=== PATIENT | male | born 1980 | race African-American/Black ===

== ENCOUNTER 2016-09-20 18:52 | Emergency (ER) | payer SELFPAY ==
[2016-09-20] MEDS ORDERED: Ketorolac 60 MG/2 ML SDV IM ONE (19:13)
--- NOTE | 2016-09-20 20:26 | EDM.PDOC ---
ED HPI GENERAL MEDICAL PROBLEM - General Chief Complaint: Lower Extremity Injury/Pain Stated Complaint: PT HURT LT ANKLE Time Seen by Provider: 09/20/16 19:10 Source of Information: Reports: Patient History Limitations: Reports: No Limitations - History of Present Illness INITIAL COMMENTS - FREE TEXT/NARRATIVE: History of present illness: [36-year-old male status post acute traumatic blow to external aspect of left ankle. Patient was stabilizing a hose when it would not couple and subsequently was using a hammer to strike the coupling to force the connection when his foot slipped and he subsequently hit his own ankle. Review of systems: As per history of present illness and below otherwise all systems reviewed and negative. Past medical history: As per history of present illness and as reviewed below otherwise noncontributory. Surgical history: As per history of present illness and as reviewed below otherwise noncontributory. Social history: No reported history of drug or alcohol abuse. Family history: As per history of present illness and as reviewed below otherwise noncontributory. Physical exam: HEENT: Atraumatic, normocephalic, pupils reactive, negative for conjunctival pallor or scleral icterus, mucous membranes moist, throat clear, neck supple, nontender, trachea midline. Lungs: Clear to auscultation, breath sounds equal bilaterally, chest nontender. Heart: S1S2, regular, negative for clicks, rubs, or JVD. Abdomen: Soft, nondistended, nontender. Negative for masses or hepatosplenomegaly. Negative for costovertebral tenderness. Pelvis: Stable nontender. Genitourinary: Deferred. Rectal: Deferred. Extremities: Left ankle with 1 posterior left wrist edema without ecchymosis, point tenderness, negative for cords or calf pain. Neurovascular unremarkable. Neuro: Awake, alert, oriented. Cranial nerves II through XII unremarkable. Cerebellum unremarkable. Motor and sensory unremarkable throughout. Exam nonfocal. Global assessment is benign save that as noted Diagnostics: [] Therapeutics: [] Impression: [Ankle pain] Plan: [OTC pain meds, ice, elevate] Definitive disposition and diagnosis as appropriate pending reevaluation and review of above. Left Ankle Pain Score (Numeric/FACES): 4 - Related Data Allergies Allergy/AdvReac Type Severity Reaction Status Date / Time No Known Allergies Allergy Verified 09/20/16 19:10 Home Meds: Home Meds Meloxicam 7.5 mg PO BID #30 tablet 09/20/16 [Rx] Orphenadrine [Norflex] 100 mg PO BID #28 tab.er 09/20/16 [Rx] Past Medical History HEENT History: Reports: None Cardiovascular History: Reports: None Respiratory History: Reports: None Gastrointestinal History: Reports: None Genitourinary History: Reports: None Musculoskeletal History: Reports: None Neurological History: Reports: None Psychiatric History: Reports: None Endocrine/Metabolic History: Reports: None Hematologic History: Reports: None Immunologic History: Reports: None Oncologic (Cancer) History: Reports: None Dermatologic History: Reports: None - Infectious Disease History Infectious Disease History: Reports: None Social & Family History - Family History Family Medical History: Noncontributory - Tobacco Use Smoking Status *Q: Current Every Day Smoker Years of Tobacco use: 12 Packs/Tins Daily: 0.5 - Caffeine Use Caffeine Use: Reports: Soda - Recreational Drug Use Recreational Drug Use: No Review of Systems - Review of Systems Review Of Systems: See Below (History of present illness) ED EXAM, GENERAL - Physical Exam Exam: See Below (See history of present illness) Course - Vital Signs Last Recorded V/S: Last Vital Signs Temp 36.8 C 09/20/16 19:07 Pulse 82 09/20/16 19:07 Resp 20 09/20/16 19:07 BP 152/72 H 09/20/16 19:07 Pulse Ox 99 09/20/16 19:07 - Orders/Labs/Meds Orders: Active Orders 24 hr Category Date Time Status Ankle Min 3V Lt [CR] Stat Exams 09/20/16 19:13 Ordered Meds: Medications Discontinued Medications Generic Name Dose Route Start Last Admin Trade Name Venu PRN Reason Stop Dose Admin Ketorolac Tromethamine 60 mg 09/20/16 19:13 09/20/16 19:26 Toradol IM 09/20/16 19:14 60 mg ONETIME ONE Administration Departure - Departure Time of Disposition: 20:24 Disposition: Home, Self-Care 01 Condition: Good Clinical Impression: Ankle pain - Discharge Information Prescriptions: Meloxicam 7.5 mg PO BID #30 tablet Orphenadrine [Norflex] 100 mg PO BID #28 tab.er Forms: ED Department Discharge Additional Instructions: The following information is given to patients seen in the emergency department who are being discharged to home. This information is to outline your options for follow-up care. We provide all patients seen in our emergency department with a follow-up referral. The need for follow-up, as well as the timing and circumstances, are variable depending upon the specifics of your emergency department visit. If you don't have a primary care physician on staff, we will provide you with a referral. We always advise you to contact your personal physician following an emergency department visit to inform them of the circumstance of the visit and for follow-up with them and/or the need for any referrals to a consulting specialist. The emergency department will also refer you to a specialist when appropriate. This referral assures that you have the opportunity for follow-up care with a specialist. All of these measure are taken in an effort to provide you with optimal care, which includes your follow-up. Under all circumstances we always encourage you to contact your private physician who remains a resource for coordinating your care. When calling for follow-up care, please make the office aware that this follow-up is from your recent emergency room visit. If for any reason you are refused follow-up, please contact the [facility] Emergency Department at and asked to speak to the emergency department charge nurse. Take medication as directed Follow-up with PCP in 1-2 days Return to ED as needed as discussed [facility] [address] [place] [id number] - My Orders Last 24 Hours: My Active Orders 09/20/16 19:13 Ankle Min 3V Lt [CR] Stat - Assessment/Plan Last 24 Hours: My Active Orders 09/20/16 19:13 Ankle Min 3V Lt [CR] Stat
[2016-09-20 23:21] VITALS: BP 136/74
--- NOTE | 2016-09-21 10:47 | CR ---
EXAM DATE: 09/20/16 PATIENT'S AGE: 36 Patient: CARISA OAKES Facility: [place], [place] Site . Site : 1980 Study: XRay Extremity Left ANKLE [id number]/13/2017 7:47:29 PM Ordering Physician: Doctor Biggs Final Report: Indication: Injury. Swelling. Hit medial ankle with sledge hammer. Technique: Left ankle three views. Comparison: None. Findings: No evidence of acute fracture or dislocation. Minimal degenerative changes of the tibiotalar joint and calcaneal enthesopathy. Rounded calcific density projecting between the distal tibia and fibula suggests sequela of prior trauma/ insult. Medial soft tissue swelling. No radiopaque foreign body evident. Impression: No acute osseous abnormality. Dictated by Eliezer Morton MD @ 09/20/2016 7:57:58 PM Dictated by: Eliezer Morton MD @ 09/20/2016 19:58:06 (Electronic Signature) Report Signed by Proxy. TALAT
== END 2016-09-20 20:34 | disposition home or self-care (01) ==
LOC: MW.ED 18:52
DX: M25.572 Pain in left ankle and joints of left foot (principal); F17.210 Nicotine dependence, cigarettes, uncomplicated; W22.8XXA Striking against or struck by other objects, initial encounter
CPT/HCPCS: 73610; 96372; 99283; J1885

== ENCOUNTER 2018-03-23 14:02 | Emergency (ER) | payer SELFPAY ==
--- NOTE | 2018-03-23 14:05 | EDM.PDOC ---
ED HPI GENERAL MEDICAL PROBLEM - General Chief Complaint: Upper Extremity Injury/Pain Stated Complaint: RT ARM INJURY Time Seen by Provider: 03/23/18 14:04 Source of Information: Reports: Patient History Limitations: Reports: No Limitations - History of Present Illness INITIAL COMMENTS - FREE TEXT/NARRATIVE: HISTORY AND PHYSICAL: History of present illness: Patient is a 37-year-old male who presents to the emergency room with complaints of right shoulder pain. He states he was playing a game of basketball when he started to "play rough" and was hit in the shoulder. He states he is unable to raise his arm and is concerned it is dislocated. There are multiple superficial scratch matthew to his face and left hand. He states that these are also from the basketball game. Denies hitting his head or any loss of consciousness. Unsure of his last tetanus update. Review of systems: As per history of present illness and below otherwise all systems reviewed and negative. Past medical history: As per history of present illness and as reviewed below otherwise noncontributory. Surgical history: As per history of present illness and as reviewed below otherwise noncontributory. Social history: See social history for further information Family history: As per history of present illness and as reviewed below otherwise noncontributory. Physical exam: General: Well-developed and well-nourished 37-year-old -[place] male. Alert and oriented. Nontoxic appearing and in no acute distress HEENT: Atraumatic, normocephalic, pupils equal and reactive bilaterally, negative for conjunctival pallor or scleral icterus, mucous membranes moist, throat clear, neck supple, nontender, trachea midline. No drooling or trismus noted. No meningeal signs Lungs: Clear to auscultation, breath sounds equal bilaterally, chest nontender. Heart: S1S2, regular rate and rhythm without overt murmur Abdomen: Soft, nondistended, nontender. Negative for masses or hepatosplenomegaly. Negative for costovertebral tenderness. Pelvis: Stable nontender. Genitourinary: Deferred. Rectal: Deferred. Skin: Superficial scratch matthew to the bridge of the nose and left hand. Otherwise skin is intact, warm, dry. No lesions or rashes noted. Extremities: Right arm is guarded towards his body does appear to have a step- off of the right shoulder. Limited range of motion unable to extend forward or away from the body without increased pain. No clavicular or scapular pain. He does have a strong radial pulse. Capillary refill less than 3 seconds. Negative for cords or calf pain. Neurovascular unremarkable. Neuro: Awake, alert, oriented. Cranial nerves II through XII unremarkable. Cerebellum unremarkable. Motor and sensory unremarkable throughout. Exam nonfocal. Notes: Procedure was explained prior and consent was obtained. Massage manipulation and traction was used to reduce the shoulder with Dr Mac's assistance; patient tolerated well. Shoulder immobilizer was placed afterwards. Post reduction images were obtained. Successful reduction. Supportive care measures were reviewed and discussed. He will follow-up with the orthopedic provider next week for reevaluation and further management. Denies any further questions or concerns at this time. Diagnostics: Right shoulder x-ray Therapeutics: Tdap, bacitracin, wound care, Toradol IM, shoulder immobilizer Prescription: None Impression: Right Shoulder Dislocation Abrasions Plan: 1. Please wear the shoulder immobilizer until re-evaluated by the orthopedic provider. 2. Tylenol and/or ibuprofen as needed for pain management. 3. Keep your abrasions clean and dry. Continue to monitor for signs of infection. 4. Follow-up with the orthopedic provider next week. Return to the ED as needed and as discussed. Definitive disposition and diagnosis as appropriate pending reevaluation and review of above. Onset: Today right shoulder Pain Score (Numeric/FACES): 9 - Related Data Allergies Allergy/AdvReac Type Severity Reaction Status Date / Time No Known Allergies Allergy Verified 09/20/16 19:10 Home Meds: Home Meds . [No Known Home Meds] 03/23/18 [History] Past Medical History HEENT History: Reports: None Cardiovascular History: Reports: None Respiratory History: Reports: None Gastrointestinal History: Reports: None Genitourinary History: Reports: None Musculoskeletal History: Reports: None Neurological History: Reports: None Psychiatric History: Reports: None Endocrine/Metabolic History: Reports: None Hematologic History: Reports: None Immunologic History: Reports: None Oncologic (Cancer) History: Reports: None Dermatologic History: Reports: None - Infectious Disease History Infectious Disease History: Reports: None Social & Family History - Family History Family Medical History: Noncontributory - Caffeine Use Caffeine Use: Reports: Soda Review of Systems - Review of Systems Review Of Systems: ROS reveals no pertinent complaints other than HPI. ED EXAM, GENERAL - Physical Exam Exam: See Below (See dictation) Course - Vital Signs Last Recorded V/S: Last Vital Signs Temp 96.6 F 03/23/18 14:31 Pulse 100 03/23/18 14:31 Resp 20 03/23/18 14:31 BP 152/112 H 03/23/18 14:31 Pulse Ox 96 03/23/18 14:31 - Orders/Labs/Meds Orders: Active Orders 24 hr Category Date Time Status Communication Order [RC] STAT Care 03/23/18 14:18 Active Vaccines to be Administered [RC] PER UNIT ROUTINE Care 03/23/18 14:15 Active Shoulder Comp Rt [CR] Stat Exams 03/23/18 14:14 Ordered Shoulder Comp Rt [CR] Stat Exams 03/23/18 14:48 Ordered Ketorolac [Toradol] Med 03/23/18 14:49 Once 60 mg IM ONETIME ONE DME for Discharge [COMM] Stat Oth 03/23/18 14:38 Ordered Medication Orders Ketorolac Tromethamine (Toradol) 60 mg IM ONETIME ONE Stop: 03/23/18 14:50 Meds: Medications Generic Name Dose Route Start Last Admin Trade Name Freq PRN Reason Stop Dose Admin Ketorolac Tromethamine 60 mg 03/23/18 14:49 Toradol IM 03/23/18 14:50 ONETIME ONE Discontinued Medications Generic Name Dose Route Start Last Admin Trade Name Freq PRN Reason Stop Dose Admin Bacitracin 1 dose 03/23/18 14:18 Bacitracin Oint 1 Gm TOP 03/23/18 14:19 ONETIME ONE Diphtheria/Tetanus/Acell Pertussis 0.5 ml 03/23/18 14:14 03/23/18 14:26 Adacel IM 03/23/18 14:15 0.5 ml .ONCE ONE Administration Diphtheria/Tetanus/Acell Pertussis Confirm 03/23/18 14:19 03/23/18 14:27 Adacel Administered 03/23/18 14:20 Not Given Dose 0.5 ml .ROUTE .STK-MED ONE Departure - Departure Time of Disposition: 15:14 Disposition: Home, Self-Care 01 Clinical Impression: Abrasion Shoulder dislocation Qualifiers: Encounter type: initial encounter Laterality: right Qualified Code(s): S43.004A - Unspecified dislocation of right shoulder joint, initial encounter - Discharge Information Referrals: PCP,None [Primary Care Provider] - Forms: ED Department Discharge Additional Instructions: The following information is given to patients seen in the emergency department who are being discharged to home. This information is to outline your options for follow-up care. We provide all patients seen in our emergency department with a follow-up referral. The need for follow-up, as well as the timing and circumstances, are variable depending upon the specifics of your emergency department visit. If you don't have a primary care physician on staff, we will provide you with a referral. We always advise you to contact your personal physician following an emergency department visit to inform them of the circumstance of the visit and for follow-up with them and/or the need for any referrals to a consulting specialist. The emergency department will also refer you to a specialist when appropriate. This referral assures that you have the opportunity for follow-up care with a specialist. All of these measure are taken in an effort to provide you with optimal care, which includes your follow-up. Under all circumstances we always encourage you to contact your private physician who remains a resource for coordinating your care. When calling for follow-up care, please make the office aware that this follow-up is from your recent emergency room visit. If for any reason you are refused follow-up, please contact the [facility] Emergency Department at and asked to speak to the emergency department charge nurse. [facility] [address] [place] [address] [address] [facility] [address] [place] [address], [address] [place] [address] 1. Please wear the shoulder immobilizer until re-evaluated by the orthopedic provider. 2. Tylenol and/or ibuprofen as needed for pain management. 3. Keep your abrasions clean and dry. Continue to monitor for signs of infection. 4. Follow-up with the orthopedic provider next week. Return to the ED as needed and as discussed. - My Orders Last 24 Hours: My Active Orders 03/23/18 14:14 Shoulder Comp Rt [CR] Stat 03/23/18 14:15 Vaccines to be Administered [RC] PER UNIT ROUTINE 03/23/18 14:18 Communication Order [RC] STAT 03/23/18 14:38 DME for Discharge [COMM] Stat 03/23/18 14:48 Shoulder Comp Rt [CR] Stat 03/23/18 14:49 Ketorolac [Toradol] 60 mg IM ONETIME ONE - Assessment/Plan Last 24 Hours: My Active Orders 03/23/18 14:14 Shoulder Comp Rt [CR] Stat 03/23/18 14:15 Vaccines to be Administered [RC] PER UNIT ROUTINE 03/23/18 14:18 Communication Order [RC] STAT 03/23/18 14:38 DME for Discharge [COMM] Stat 03/23/18 14:48 Shoulder Comp Rt [CR] Stat 03/23/18 14:49 Ketorolac [Toradol] 60 mg IM ONETIME ONE
[2018-03-23] MEDS ORDERED: Diphtheria,Pertussis(Acell),Tetanus Vaccine 0.5 ML Syringe IM ONE (14:14)
[2018-03-23] MEDS ORDERED: Bacitracin Oint 1 GM U/D Packet TOP ONE (14:18)
[2018-03-23] MEDS ORDERED: Diphtheria,Pertussis(Acell),Tetanus Vaccine 0.5 ML Syringe ONE (14:19)
[2018-03-23] MEDS ORDERED: Ketorolac 60 MG/2 ML SDV IM ONE (14:49)
[2018-03-23 15:32] VITALS: BP 146/101
--- NOTE | 2018-03-24 20:19 | CR ---
EXAM DATE: 03/23/18 PATIENT'S AGE: 37 Patient: CARISA RIVERA Facility: [place], [place] Site . Site : 1980 Study: XRay Shoulder Right [id number]/13/2019 2:37:15 PM Ordering Physician: Doctor Biggs Final Report: Indication: Dislocation. Technique: Two views of the right shoulder were obtained. Comparison: None Findings: The humeral head is dislocated anterior and inferior in relation to the glenoid. No acute fracture is identified. Impression: Right shoulder dislocation. Dictated by Suzie Alcantara MD @ Mar 23 2018 2:55PM (Electronic Signature) Report Signed by Proxy. TALAT
--- NOTE | 2018-03-24 20:20 | CR ---
EXAM DATE: 03/23/18 PATIENT'S AGE: 37 Patient: CARISA RIVERA Facility: [place], [place] Site . Site : 1980 Study: XRay Shoulder Right [id number]/13/2019 3:07:45 PM Ordering Physician: Doctor Biggs Final Report: Indication: Postreduction. Technique: A single view of the right shoulder was obtained. Comparison: Comparison is made with the study from earlier today. Findings: The humeral head is seated within the glenoid. No definite fracture seen. Impression: Postreduction of the right shoulder dislocation Dictated by Suzie Alcantara MD @ Mar 23 2018 3:17PM (Electronic Signature) Report Signed by Proxy. TALAT
== END 2018-03-23 15:27 | disposition home or self-care (01) ==
LOC: MW.ED 14:02
DX: S43.004A Unspecified dislocation of right shoulder joint, initial encounter (principal); S00.31XA Abrasion of nose, initial encounter; S60.512A Abrasion of left hand, initial encounter; Y93.67 Activity, basketball; Z23 Encounter for immunization; W22.8XXA Striking against or struck by other objects, initial encounter
CPT/HCPCS: 23650; 73020; 73030; 90471; 90715; 96372; 99283; J1885